=== PATIENT | female | born 1990 | race African-American/Black ===

== ENCOUNTER 2016-09-15 20:15 | Emergency (ER) | payer MEDICAID ==
[~2016-09-15] VITALS: Ht 165.1 cm; Wt 56.0 kg
[2016-09-15 20:25] VITALS: BP 104/67
== END 2016-09-16 01:00 | disposition left against medical advice (07) ==
LOC: ER 09-16 00:27
DX: Z53.21 Procedure and treatment not carried out due to patient leaving prior to being seen by health care provider (principal)

== ENCOUNTER 2016-12-09 15:27 | Emergency (ER) | payer OTHER, MEDICAID ==
[~2016-12-09] VITALS: Ht 167.6 cm; Wt 57.0 kg
[2016-12-09] MEDS ORDERED: DIPHENHYDRAMINE 50MG/ML VIAL IM ONE (16:45)
[2016-12-09 19:29] VITALS: BP 105/67
== END 2016-12-09 19:34 | disposition home or self-care (01) ==
LOC: ER 15:27
DX: T78.40XA Allergy, unspecified, initial encounter (principal); J45.909 Unspecified asthma, uncomplicated; F17.200 Nicotine dependence, unspecified, uncomplicated; X58.XXXA Exposure to other specified factors, initial encounter
CPT/HCPCS: 96372; 99283; J1200; Z7610

== ENCOUNTER 2017-12-07 00:37 | Emergency (ER) | payer MEDICAID, OTHER ==
[~2017-12-07] VITALS: Ht 165.1 cm; Wt 59.0 kg
[2017-12-07] MEDS ORDERED: IPRATROPIUM BROMIDE (0.02%) 0.5MG/2.5ML NEB HHN STA (00:52)
[2017-12-07] MEDS ORDERED: PREDNISONE 20MG TABLET PO STA (00:52)
[2017-12-07] MEDS ORDERED: ALBUTEROL (0.083%) 2.5MG/3ML NEB HHN STA (00:52)
[2017-12-07] MEDS ORDERED: IPRATROPIUM/ALBUTEROL 0.5-3(2.5)MG/3ML NEB ONE (01:08)
[2017-12-07] MEDS ORDERED: ALBUTEROL (0.5%) 2.5MG/0.5ML NEB HHN ONE (01:08)
[2017-12-07] MEDS ORDERED: DIPHENHYDRAMINE 25MG CAPSULE PO ONE (02:00)
[2017-12-07] MEDS ORDERED: LORAZEPAM 0.5MG TABLET PO ONE (02:00)
[2017-12-07 02:32] VITALS: BP 111/59
[2017-12-07] MEDS ORDERED: ALBU18HF2 IH (16:47)
== END 2017-12-07 04:56 | disposition home or self-care (01) ==
LOC: ER 00:37
DX: J45.901 Unspecified asthma with (acute) exacerbation (principal); F17.200 Nicotine dependence, unspecified, uncomplicated; F12.10 Cannabis abuse, uncomplicated
CPT/HCPCS: 94640; 99284; J7512; J7611; J7620; Q0163

== ENCOUNTER 2017-12-07 16:39 | Emergency (ER) | payer MEDICAID, OTHER ==
[~2017-12-07] VITALS: Ht 165.1 cm; Wt 59.0 kg
[2017-12-07] MEDS ORDERED: ALBU18HF2 IH (16:47)
[2017-12-07] MEDS ORDERED: IPRATROPIUM BROMIDE (0.02%) 0.5MG/2.5ML NEB HHN STA (17:11)
[2017-12-07] MEDS ORDERED: ALBUTEROL (0.083%) 2.5MG/3ML NEB HHN STA (17:11)
[2017-12-07] MEDS ORDERED: METHYLPREDNISOLONE SOD SUCC 125 MG/2 ML VIAL IM ONE (18:00)
[2017-12-07] MEDS ORDERED: ONDANSETRON HCL 4MG/2ML INJ IV ONE (18:30)
[2017-12-07] MEDS ORDERED: SODIUM CHLORIDE 0.9% 1,000 ML IV ONE (18:30)
[2017-12-07 19:08] LABS: CLARITY URINE CLEAR (CLEAR); COLOR URINE YELLOW (YELLOW); KETONES URINE NEGATIVE (NEGATIVE); LEUKOCYTE ESTERASE URINE 2+ (NEGATIVE); NITRITE URINE NEGATIVE (NEGATIVE); OCCULT BLOOD URINE NEGATIVE (NEGATIVE); PROTEIN URINE NEGATIVE (NEGATIVE); SPECIFIC GRAVITY URINE 1.022 (1.005-1.030); UROBILINOGEN URINE 0.2 E.U./dL (0.2-1.0)
[2017-12-07 19:21] LABS: BASOPHILS % 0.2 % (0.0-2.0); EOSINOPHILS % 0.1 % (0.0-5.0); HEMATOCRIT. 37.3 % (36.0-48.0); HEMOGLOBIN. 12.1 g/dL (12.0-16.0); LYMPHOCYTES % 16.5 % (20.0-50.0); MEAN CORPUSCULAR HEMOGLOBIN 28.3 pg (28.0-32.0); MEAN PLATELET VOLUME 8.2 fl (7.4-10.4); MONOCYTES % 6.2 % (2.0-8.0); PLATELET 293 x1000/uL (130-400); RED BLOOD CELL COUNT 4.29 mill/uL (4.2-5.4); RED CELL DISTRIBUTION WIDTH 13.9 % (11.6-14.6)
[2017-12-07 19:24] LABS: CHLORIDE 109 mEq/L (98-107)
[2017-12-07 19:27] LABS: PROTHROMBIN TIME 10.2 sec (9.1-11.1)
[2017-12-07] MEDS ORDERED: POTASSIUM CHLORIDE 20MEQ TABLET SR PO ONE (19:45)
[2017-12-07 22:28] VITALS: BP 103/51
== END 2017-12-07 22:34 | disposition home or self-care (01) ==
LOC: ER 17:35
DX: J45.901 Unspecified asthma with (acute) exacerbation (principal); N30.90 Cystitis, unspecified without hematuria; E87.6 Hypokalemia
CPT/HCPCS: 36415; 71045; 76705; 80053; 81003; 81025; 83690; 85025; 85610; 96361; 96372; 96374; 99285; J2405; J2930; J7030; J7611; Z7610